=== PATIENT | male | born 1965 | race Caucasian/White ===

== ENCOUNTER → 2021-02-06 08:57 | Outpatient (CLI) | payer BC, SELFPAY ==
--- NOTE | ~2021-02-06 | XR_ITS ---
EXAMINATION: XR hip BI 2V w AP pelvis EXAM DATE: 02/06/2021 09:26 INDICATION: Bilateral hip pain. Left Posterior Hip Pain Radiates To Posterior Femur And Groin. Right Groin Pain. Fell Out Of Hot Tub 1 Year Ago. TECHNIQUE: Each hip imaged independently (separate right and also left hip) 'frog leg' and frontal p rojections for interpretation. Frontal projection pelvis. There is no prior study for comparison. FINDINGS: No radiographic evidence of hip avascular necrosis. There is moderate symmetric bilateral hip primary osteoarthritis. There are no acute fractures or dislocations identified. There is no sub cutaneous gas. The soft tissue is unremarkable. There are no radiopaque foreign bodies. IMPRESSION: Moderate bilateral hip osteoarthritis.. Reviewed, dictated and finalized at location B. [employer]
== END ==
PROVIDERS: PCP Family Medicine; Visit Provider Family Medicine
DX: M16.0 Bilateral primary osteoarthritis of hip (principal)
CPT/HCPCS: 73521

== ENCOUNTER 2023-03-29 08:50 | Outpatient (CLI) | payer BC, SELFPAY ==
--- NOTE | 2023-03-29 11:00 | NEURO_ITS ---
Impression: # Complains of numbness and weakness of both hands. # Bilateral ulnar neuropathy across the elbows. # No Carpal Tunnel Syndrome. # Mildly abnormal needle/EMG exam. Nerve Conduction Studies Anti Sensory Summary Table Stim Site NR Peak (ms) P-T Amp (?V) Site1 Site2 Delta-P (ms) Dist (cm) Jean-Claude (m/s) Left Median Anti Sensory (2-3nd Digit) Wrist 2.9 34.7 Wrist 2-3nd Digit 2.9 14.0 48 Wrist 2.8 40.0 Wrist 2-3nd Digit 2.9 14.0 48 Right Median Anti Sensory (2-3nd Digit) Wrist 2.9 18.5 Wrist 2-3nd Digit 2.9 14.0 48 Wrist 2.8 13.2 Wrist 2-3nd Digit 2.9 14.0 48 Left Radial Anti Sensory (Base 1st Digit) Wrist 2.1 15.8 Wrist Base 1st Digit 2.1 0.0 Right Radial Anti Sensory (Base 1st Digit) Wrist 2.6 12.3 Wrist Base 1st Digit 2.6 0.0 Left Ulnar Anti Sensory (5th Digit) Wrist 2.8 23.1 Wrist 5th Digit 2.8 14.0 50 Right Ulnar Anti Sensory (5th Digit) Wrist 2.7 22.8 Wrist 5th Digit 2.7 14.0 52 Motor Summary Table Stim Site NR Onset (ms) O-P Amp (mV) Site1 Site2 Delta-0 (ms) Dist (cm) Jean-Claude (m/s) Left Median Motor (Abd Poll Brev) Wrist 2.8 3.1 Elbow Wrist 5.8 31.0 53 Elbow 8.6 3.0 Right Median Motor (Abd Poll Brev) Wrist 3.4 3.0 Elbow Wrist 5.7 30.0 53 Elbow 9.1 1.7 Left Ulnar Motor (Abd Dig Minimi) Wrist 2.8 5.3 A Elbow Wrist 7.0 32.0 46 A Elbow 9.8 4.3 B Elbow Wrist 4.4 24.0 55 B Elbow 7.2 2.7 Right Ulnar Motor (Abd Dig Minimi) Wrist 2.7 3.3 A Elbow Wrist 6.7 32.0 48 A Elbow 9.4 2.4 B Elbow Wrist 4.7 24.0 51 B Elbow 7.4 1.6 F Wave Studies NR F-Lat (ms) L-R F-Lat (ms) Left Median (Mrkrs) (Abd Poll Brev) 31.86 0.21 Right Median (Mrkrs) (Abd Poll Brev) 31.64 0.21 Left Ulnar (Mrkrs) (Abd Dig Min) 32.73 0.62 Right Ulnar (Mrkrs) (Abd Dig Min) 32.11 0.62 EMG Side Muscle Nerve Root Ins Act Fibs Amp Dur Recrt Comment Right 1stDorInt Ulnar C8-T1 Nml Nml Nml >12ms Reduced Right Ext Indicis Radial (Post Int) C7-8 Nml Nml Nml Nml Nml Right Ext Digitorum Radial (Post Int) C7-8 Nml Nml Nml Nml Nml Right BrachioRad Radial C5-6 Nml Nml Nml Nml Nml Right PronatorTeres Median C6-7 Nml Nml Nml Nml Nml Right Abd Poll Brev Median C8-T1 Nml Nml Nml Nml Nml Left 1stDorInt Ulnar C8-T1 Nml Nml Nml >12ms Reduced Left Ext Indicis Radial (Post Int) C7-8 Nml Nml Nml Nml Nml Left Ext Digitorum Radial (Post Int) C7-8 Nml Nml Nml Nml Nml Left BrachioRad Radial C5-6 Nml Nml Nml Nml Nml Left PronatorTeres Median C6-7 Nml Nml Nml Nml Nml Left Abd Poll Brev Median C8-T1 Nml Nml Nml Nml Nml Right ABD Dig Min Ulnar C8-T1 Nml Nml Nml >12ms Reduced Left ABD Dig Min Ulnar C8-T1 Nml Nml Nml >12ms Reduced MTDD
== END 2023-03-29 08:51 | disposition home or self-care (01) ==
LOC: ANHNEURO 08:52
PROVIDERS: PCP Family Medicine; Visit Provider Plastic Surgery
DX: R53.1 Weakness (principal); R20.2 Paresthesia of skin; G56.23 Lesion of ulnar nerve, bilateral upper limbs
CPT/HCPCS: 95886; 95911

== ENCOUNTER 2023-05-14 09:58 | Outpatient (CLI) | payer BC, SELFPAY ==
[2023-05-14 11:01] LABS: Anion Gap 6 mmol/L (8-16); Blood Urea Nitrogen 15 mg/dL (9-20); Calcium 8.7 mg/dL (8.4-10.2); Carbon Dioxide 31 mmol/L (22-30); Chloride 103 mmol/L (98-107); Estimated Glomerular Filt Rate > 60; Glucose 234 mg/dL (65-110); Potassium 4.1 mmol/L (3.4-5.0); Sodium 140 mmol/L (137-145)
== END 2023-05-14 09:59 | disposition home or self-care (01) ==
PROVIDERS: PCP Family Medicine; Visit Provider Anesthesiology
DX: E13.9 Other specified diabetes mellitus without complications (principal)
CPT/HCPCS: 36415; 80048

== ENCOUNTER 2023-05-18 01:28 | Day surgery (SDC) | payer BC, SELFPAY ==
[2023-05-12 13:57] VITALS: BMI 41.5
--- NOTE | 2023-05-12 14:22 | PC.NURSE ---
Report to the Outpatient Waiting Room, entrance under the green pavilion located off [facility], at time _0600 on date 05/18/23. Planned Procedure Time: _0730_. Time changes happen often and if your time is changed the preop area will call you the afternoon before. - You and your visitor will be asked to self-screen and do not enter if you have any COVID symptoms. - A mask is optional within the hospital at this time. Patients may have clear liquids (water, carbonated beverages, clear teas, apple juice) until 3 hours prior to surgery with a maximum of 20 ounces. - No food from midnight until time of surgery - Infants may have breast milk until 4 hours before surgery, formula 6 hours prior to surgery. - Children will be allowed to drink immediately following surgery. If applicable, please bring a bottle or sippy cup to assist with drinking. Juice, water, soda, and popsicles are readily available. For infants on formula, please bring formula the day of surgery. Pacifiers are allowed. Take the following medications with a SIP of water the morning of surgery: _nebivolol__ DO NOT STOP ANY OF YOUR OTHER PRESCRIPTION MEDICATIONS PRIOR TO SURGERY ?EXCEPT THE FOLLOWING Medications to discontinue per physician __vitamins(05/15/23), metformin(morning of dos) Date to take last dose Please no make-up, nail guatemalan, hairspray, perfume, deodorant, or body powder the day of surgery. No jewelry (including any body piercings) or valuables the day of surgery, leave them at home. Please take a shower or bath the night before, or the morning of, surgery with an antibacterial soap. Wear comfortable, loose fitting clothing. Children are encouraged to wear pajamas. - Jewelry must be removed prior to entering the operating room. Rings and piercings that are not removed may be cut off. - The hospital will not accept responsibility for valuables. - Please leave all valuables, including medications, at home the day of surgery. If you are going home after surgery, a licensed rail car driver must drive you home. - NO public transportation without another adult if you receive anesthesia. - We recommend that an adult stay with you for 24 hours following discharge. - We also recommend that you do not drive, make important decision, drink alcoholic beverages, or take any drugs that were not prescribed by your health care provider for at least 24 hours after your discharge time. For Pediatric surgeries, we recommend two adults accompany the child home. Follow any additional instructions given to you from your surgeon. If you or anyone in your household have experienced Covid symptoms in the past week, please notify your surgeon or the nurse liaison at the phone number below for possible testing. Telephone instructions given to Fab Steven_and asked if any additional questions and then verbalized understanding. Patient advised to call surgeon office or pre surgery nurse liaison [phone] if any additional questions.
--- NOTE | 2023-05-17 14:42 | WPDANESEPPF ---
Anes - Initial Pre Proc Eval Procedure: Operation Date: 05/18/23 08:15 Proposed Procedures p Bilateral Ulnar Neuroplasty at Elbow, - Kevin Brand MD s Release Left Fourth A-1 Severino - Kevin Brand MD Date/Time: 05/17/23 14:42 Surgeon: Kevin Brand MD Pre Op Diagnosis: bilateral cubital tunnel, left 4th trigger finger Patient Data Age: 58 Gender: M Height: 1.88 m Weight: 147 kg Allergies Allergy/AdvReac Type Severity Reaction Status Date / Time cortisone Allergy Unknown Unknown Verified 05/16/23 08:37 rosuvastatin AdvReac Severe Unknown Verified 05/16/23 08:37 Home Medications Medication Instructions Recorded Confirmed Type ascorbic acid (vitamin C) 1,000 mg 1 gm PO DAILY 04/03/20 05/16/23 History tablet aspirin 81 mg tablet,delayed 81 mg PO DAILY 04/03/20 05/16/23 History release (Aspir-) cholecalciferol (vitamin D3) 125 125 mcg PO DAILY 04/03/20 05/16/23 History mcg (5,000 unit) capsule cyanocobalamin (vitamin B-12) 1,000 mcg PO DAILY 04/03/20 05/16/23 History 1,000 mcg tablet (Vitamin B-12) multivit,Ca,min-iron 8 mg-folic 1 tablet PO .QD 04/03/20 05/16/23 History acid 200 mcg-lycopene 600 mcg tablet (Centrum Ultra Men's) omeprazole 40 mg capsule,delayed 40 mg PO DAILY #90 caps 01/12/23 05/16/23 Rx release amlodipine 10 mg tablet 10 mg PO DAILY #90 tabs 05/16/23 05/16/23 Rx atorvastatin 80 mg tablet 80 mg PO DAILY #90 tabs 05/16/23 05/16/23 Rx clonidine HCl 0.1 mg tablet 0.1 mg PO DAILY #90 tabs 05/16/23 05/16/23 Rx empagliflozin 25 mg tablet See Rx Instructions .Route 05/16/23 05/16/23 Rx (Jardiance) .COMPLEX #90 tabs gabapentin 300 mg capsule 600 mg PO QHS 90 days #180 caps 05/16/23 05/16/23 Rx glucagon 1 mg/0.2 mL subcutaneous 1 mg (0.2 mL) subcut ONCE PRN 05/16/23 05/16/23 Rx auto-injector (Gvoke HypoPen hypoglycemia #0.4 mL 2-Pack) insulin glargine U-300 conc 300 60 unit (0.2 mL) subcut DAILY 90 05/16/23 05/16/23 Rx unit/mL (3 mL) subcutaneous pen days #18 mL (Toujeo Max U-300 SoloStar) lisinopril 40 mg tablet 40 mg PO DAILY #90 tabs 05/16/23 05/16/23 Rx metformin 500 mg 24 hr 1,000 mg PO BID 90 days #360 tabs 05/16/23 05/16/23 Rx tablet,extended release nebivolol 20 mg tablet 20 mg PO BID #180 tabs 05/16/23 05/16/23 Rx semaglutide (weight loss) 2.4 2.4 mg (0.75 mL) subcut WEEKLY 28 05/16/23 05/16/23 Rx mg/0.75 mL subcutaneous pen days #3 syringes injector (Wegovy) Patient hx anesthesia problems: none Family hx anesthesia problems: none Results Review: All pre-operative results and documents have been reviewed as part of the pre-operative evaluation. [facility] Past Medical History Medical History Abnormal MRI, lumbar spine BMI greater than 40 Degenerative lumbar disc Diabetes, type 1.5, uncontrolled, managed as type 2 Dupuytren contracture Essential (primary) hypertension Hip pain Insomnia Liver fibrosis Low back pain radiating down leg Other hyperlipidemia Family History Family History Other Diabetes mellitus Family history of coronary artery disease Hypertension Social History Social History Smoking status: Never smoker Second hand tobacco smoke exposure: Yes Alcohol intake: current Substance use: never Living arrangements: with family Spiritual care concerns: No Anes - Eval Final PreProcedure Day of Procedure 05/17/23 14:42 Patient weight: morbidly obese Heart: regular rate and rhythm Lungs: clear to auscultation Airway: Mallampati scale class II Neurological: alert and oriented Last oral intake: >/= 8 hours ASA classification: III Emergent: no Anesthetic plan: proceed Anesthesia type and monitoring: general LMA and standard monitoring Results Review: All pre-operative results and documents have been reviewed as part of the
[2023-05-18] VITALS (10 sets, daily range): BP systolic 139–193; BP diastolic 77–93; PULSE 72–81; RESP 14–20; TEMP 35.9–36.2; O2SAT 93–99
--- NOTE | 2023-05-18 07:11 | WPDHPUPDATE1 ---
History and Physical Update Update Date/Time: 05/18/23 07:11 History and Physical has been reviewed, including an updated exam of the patient. There are NO changes in the patient's condition. Risks, benefits, and alternatives have been discussed and questions answered. Patient agrees to proceed with procedure.
[2023-05-18] MEDS: LACTATED RINGERS 1,000 ML 30 ML IV CONT ×2 (07:20→11:18)
[2023-05-18 07:21] LABS: Glucose Point of Care 232 mg/dl (65-105)
[2023-05-18] MEDS: LIDO 1%/EPINEPHRINE 1:100,000 50 ML VIAL 10 ML INFILTRATE (09:39)
[2023-05-18] MEDS: CELLULOSE OXIDIZED 2 x 3 INCH 1 PKT XX (10:53)
[2023-05-18 11:23] LABS: Glucose Point of Care 211 mg/dl (65-105)
--- NOTE | 2023-05-18 11:44 | PM.OP ---
Procedure Note - Brief Procedure Note - Brief Date of procedure: 05/18/23 bilateral cubital tunnel, left 4th trigger finger Post-op diagnosis: Same Procedure performed: Bilateral ulnar neuroplasty at elbows and release left 4th trigger finger Surgeon: Kevin Brand MD Anesthesia: GLMA
--- NOTE | 2023-05-18 11:58 | SUR.PHASEI ---
1158- Notified Dr. Bobby blood glucose 211 during check in recovery room. Per Dr. Bobby no new orders at this time.
[2023-05-18] MEDS: oxyCODONE HCL (*CRX) 5 MG TAB IR PO (12:18)
[2023-05-18] MEDS: fentaNYL CITRATE INJ (*CRX) 100 MCG/2 ML VIAL 25 MCG IV PUSH ×2 (12:37→12:54)
[2023-05-18] MEDS: hydrALAZINE HCL 20 MG/ML VIAL 10 MG IV PUSH (13:01)
[2023-05-18] MEDS: KETOROLAC 15 MG/ML VIAL (*BKC) IV PUSH (13:25)
--- NOTE | 2023-05-18 20:13 | P.OP_ITS ---
Procedure Note - Detailed Date of Procedure 05/18/23 Pre-op Diagnosis bilateral cubital tunnel, left 4th trigger finger Post-op Diagnosis Same Procedure Performed Bilateral ulnar neuroplasty he is at the elbow. Release of left ring trigger finger Surgeon Kevin Brand MD Anesthesia General Description of Procedure The 3 sites, both elbows and left 4th trigger finger, were marked on the patient in holding area. He was taken to the operating room where he was placed supine on the operating table. The 2 extremities were prepped at the same time on separate hand tables. The left side was operated 1st. The incision for the left 4th trigger finger which underlay a Dupuytren's cord was marked for a longi tudinal incision. The 2 elbows were marked for ulnar neuroplasty. All 3 sites were infiltrated with 1% lidocaine with epinephrine. The left side was done 1st after exsanguination of the left upper extremity and elevation of the tourniquet to 250 mmHg. A longitudinally oriented to several incision was marked over the area of the A1 jay. This allowed skin elevation to clear out up proximally 1 cm of Dupuytren's fasciitis. Once that was removed were able to lyse the A1 jay without difficulty. Skin was closed with interrupted 4-0 nylon. The arm was flexed and the elbow supported on folded towels. The incision was made as marked over the course of the ulnar nerve. Numerous the small vessels were cauterized. The nerve was identified lying behind triceps muscle. This was accessed proximal to the medial epicondyle. The nerve was surrounded with fatty tissue almost throughout its length. The nerve however did not subluxate. The release was primarily involved with division of Valle's ligament and muscle fascia distally. Several small vessels were cauterized during this process with a setting of 15 on the cautery. The tourniquet was released. The wound was closed with intradermal 3-0 Monocryl sutures at several sites. The skin was then closed with the running intradermal 3-0 Monocryl. The usual bandage was applied. Attention was turned to the right side. The elbow was flexed and supported on folded towels. The incision was made as marked after inflating the tourniquet to 250 mmHg. A dissection through the subcutaneous tissue required cauterization of numerous small vessels. The nerve was more difficult to identify on this occasion. The triceps muscle was fairly prominent. The nerve lay beneath it. Again the nerve was encased in the sleeve of fat throughout the whole length of its exposure. On the right side there was marked involvement of the intermuscular septum which required division. This required about an inch and a half of additional skin incision proximally. Distally the muscle and muscle fascia also required division to allow finger to pass alongside the nerve. This nerve also did not subluxate. The tourniquet was released and the wound was closed with intradermal 3-0 Monocryl at cross hatching parmar. The skin was closed with a running 3-0 Monocryl intradermal suture. The appropriate bulky bandage was applied to the arm and he was discharged in stable condition. He was discharged home with a prescription for hydrocodone .. This prescription was handed to him outside the hospital later in the day. And Lexa kirby was sent to his pharmacy for cephalexin 500 mg t.i.d. for 5 days. Estimated Blood Loss 15 Drains No Packing No Pathology None sent Complications No immediate complications Condition Stable Disposition PACU
== END 2023-05-18 14:02 | disposition home or self-care (01) ==
PROVIDERS: PCP Family Medicine; Visit Provider Plastic Surgery
PROC: (CPT 26055; principal; 2023-05-18 08:15)
PROC: (CPT 26055; 2023-05-18 08:15)
DX: G56.23 Lesion of ulnar nerve, bilateral upper limbs (principal); M65.342 Trigger finger, left ring finger; E13.9 Other specified diabetes mellitus without complications; I10 Essential (primary) hypertension; E78.49 Other hyperlipidemia; Z79.82 Long term (current) use of aspirin; Z79.84 Long term (current) use of oral hypoglycemic drugs; Z79.4 Long term (current) use of insulin; Z79.899 Other long term (current) drug therapy; E66.01 Morbid (severe) obesity due to excess calories; Z68.41 Body mass index [BMI] 40.0-44.9, adult
CPT/HCPCS: 26055; 64718; 82948; A9270; J0360; J1100; J1885; J2250; J2405; J2704; J3010; J7120